=== PATIENT | female | born 1950 | race Caucasian/White ===

== ENCOUNTER → 2020-03-10 14:13 | Outpatient (CLI) | payer OTHER, SELFPAY ==
--- NOTE | ~2020-03-10 | XR_ITS ---
XR lumbar spine 2-3V 03/10/2020 14:50 Indication: Low back pain Procedure: 3 views lumbar spine Comparison: CT dated 07/16/2018 Findings: There is a superior endplate compression fracture of L1, age indeterminate. There is disc n arrowing at L3-4, L4-5 and L5-S1. There is moderate multilevel facet hypertrophy. Pedicles intact. Sa cral foramen are symmetric Impression: 1: Age-indeterminate superior endplate compression fracture of L1 which is new compared with CT dated 07/16/2018. Consider correlation with CT or MRI. 2: Moderate lumbar spondylosis. Reviewed, dictated and finalized at location B. NG FURNACE LOADER Impression: 1: Age-indeterminate superior endplate compression fracture of L1 which is new compared with CT dated 07/16/2018. Consider correlation with CT or MRI. 2: Moderate lumbar spondylosis.
== END ==
PROVIDERS: PCP Family Medicine Adolescent Medicine; Visit Provider Family Medicine Adolescent Medicine
DX: M47.896 Other spondylosis, lumbar region (principal); S32.010A Wedge compression fracture of first lumbar vertebra, initial encounter for closed fracture; X58.XXXA Exposure to other specified factors, initial encounter
CPT/HCPCS: 72100

== ENCOUNTER 2020-07-20 14:55 | Outpatient (CLI) | payer MEDICARE, SELFPAY | END 2020-07-20 14:56 | disposition home or self-care (01) | LOC: ANHCOVIDVC 14:55 | PROVIDERS: PCP Family Medicine Adolescent Medicine | DX: Z23 Encounter for immunization (principal) | CPT/HCPCS: 0001A; 91300 ==

== ENCOUNTER 2020-08-10 14:55 | Outpatient (CLI) | payer MEDICARE, SELFPAY | END 2020-08-10 14:56 | disposition home or self-care (01) | LOC: ANHCOVIDVC 14:56 | PROVIDERS: PCP Family Medicine Adolescent Medicine | DX: Z23 Encounter for immunization (principal) | CPT/HCPCS: 0002A; 91300 ==

== ENCOUNTER 2021-03-24 10:21 | Outpatient (CLI) | payer MEDICARE, SELFPAY ==
[2021-03-24 11:53] LABS: Potassium 4.8 mmol/L (3.4-5.0)
== END 2021-03-24 10:22 | disposition home or self-care (01) ==
PROVIDERS: PCP Family Medicine Adolescent Medicine; Visit Provider Physician Assistant
DX: E87.5 Hyperkalemia (principal)
CPT/HCPCS: 36415; 84132

== ENCOUNTER 2021-04-23 00:10 | Day surgery (SDC) | payer MEDICARE, SELFPAY ==
[2021-04-08 13:23] VITALS: BMI 34.5
[2021-04-23 11:48] VITALS: BP 162/83; PULSE 96; RESP 18; TEMP 36.8; O2SAT 98
[2021-04-23] MEDS: LACTATED RINGERS 1,000 ML 150 ML IV CONT (11:52)
[2021-04-23 11:59] LABS: Glucose Point of Care 206 mg/dl (65-105)
--- NOTE | 2021-04-23 12:11 | P.PNAN_ITS ---
Anes - Initial Pre Proc Eval Procedure: Operation Date: 04/23/21 13:00 Proposed Procedures p Screening Colonoscopy - Bethel Lovell MD Date/Time: 04/23/21 12:11 Surgeon: Bethel Lovell MD Pre Op Diagnosis: family hx of colon polyps Patient Data Age: 70 Gender: F Height: 1.7 m Weight: 101.6 kg Last Vital Signs Temp 98.2 F 04/23/21 11:48 Pulse 96 04/23/21 11:48 Resp 18 04/23/21 11:48 BP 162/83 H 04/23/21 11:48 Pulse Ox 98 04/23/21 11:48 Allergies Allergy/AdvReac Type Severity Reaction Status Date / Time PROPOXYPHENE HCL Allergy Intermediate HAS WEIRD Uncoded 04/23/21 11:47 DREAMS Dust Allergy Mild Unknown Uncoded 04/23/21 11:47 Molds and Smuts Allergy Mild Unknown Uncoded 04/23/21 11:47 Home Medications Medication Instructions Recorded Confirmed Type atorvastatin 20 mg PO DAILY 04/08/21 04/08/21 History bupropion HCl 300 mg PO DAILY 04/08/21 04/08/21 History duloxetine 30 mg PO DAILY 04/08/21 04/08/21 History fluconazole 150 mg PO DAILY 04/08/21 04/08/21 History glimepiride 2 mg PO DAILY 04/08/21 04/08/21 History levetiracetam 500 mg PO DAILY 04/08/21 04/08/21 History metformin 500 mg PO DAILY 04/08/21 04/23/21 History Laboratory Tests 04/23/21 11:52 POC Capillary Glucose 206 mg/dl H mg/dl (65-105) Patient hx anesthesia problems: none Family hx anesthesia problems: none Results Review: All pre-operative results and documents have been reviewed as part of the pre-operative evaluation. [facility] Social History Social History Smoking status: Never smoker Alcohol intake: never Substance use: never Substance use type: does not use Living arrangements: alone Spiritual care concerns: No Anes - Eval Final PreProcedure Day of Procedure 04/23/21 12:11 Patient weight: obese Heart: regular rate and rhythm Lungs: clear to auscultation Airway: Mallampati scale class II Neurological: alert and oriented Last oral intake: >/= 8 hours ASA classification: III Emergent: no Anesthetic plan: proceed Anesthesia type and monitoring: general GIVS and standard monitoring Results Review: All pre-operative results and documents have been reviewed as part of the pre-operative evaluation. Informed Consent: The patient's anesthetic plan and its attendant risks and benefits were discussed with the patient/family/POA. Questions were solicited and answers provided to the satisfaction of the patient/family/POA.
--- NOTE | 2021-04-23 12:33 | P.CONGI_ITS ---
Assessment and Plan Assessment and plan (1) History of colon polyps: Code(s): Z86.010 - Personal history of colonic polyps Status: Acute Assessment and Plan: Patient has had colon polyps. Most recently 2010 had adenomatous colon polyp removed from the colon plan is for surveillance colonoscopy now and intervals in the future. (2) Family history of colonic polyps: Code(s): Z83.71 - Family history of colonic polyps Status: Acute Assessment and Plan: Patient's brother has had colon polyps. For this reason patient presents today for neoplasia screening colonoscopy. GI Consult Note Consult date/time: 04/23/21 12:33 HPI: Porsha Laurent is a 70 year old female Presents for screening colonoscopy. Patient's current weight appetite and bowel movements are normal. Patient denies abdominal pain. She has had no bleeding. Patient herself was identified as having adenomatous colon polyp in 2010. Family history is signifi cant her brother has had colon polyps. Patient presents today for neoplasia screening. Review of Systems Review of Systems: All systems reviewed & are unremarkable except as noted in HPI and below PMFSH Social History Social History Smoking status: Never smoker Alcohol intake: never Substance use: never Substance use type: does not use Living arrangements: alone Spiritual care concerns: No Meds Home Medications and Allergies Home Medications Medication Instructions Recorded Confirmed Type atorvastatin 20 mg PO DAILY 04/08/21 04/08/21 History bupropion HCl 300 mg PO DAILY 04/08/21 04/08/21 History duloxetine 30 mg PO DAILY 04/08/21 04/08/21 History fluconazole 150 mg PO DAILY 04/08/21 04/08/21 History glimepiride 2 mg PO DAILY 04/08/21 04/08/21 History levetiracetam 500 mg PO DAILY 04/08/21 04/08/21 History metformin 500 mg PO DAILY 04/08/21 04/23/21 History Allergies Allergy/AdvReac Type Severity Reaction Status Date / Time PROPOXYPHENE HCL Allergy Intermediate HAS WEIRD Uncoded 04/23/21 11:47 DREAMS Dust Allergy Mild Unknown Uncoded 04/23/21 11:47 Molds and Smuts Allergy Mild Unknown Uncoded 04/23/21 11:47 Vital Signs Vital Signs - 24 hr 04/23/21 11:48 Temperature 98.2 F Pulse Rate 96 Respiratory Rate 18 Blood Pressure 162/83 H Pulse Oximetry 98 Exam Narrative: Physical exam reveals patient to be alert. Vital signs stable. HEENT exam is unremarkable. Patient is anicteric. Lungs are clear to auscultation and percussion. Heart is without murmur or extra sounds. Abdominal exam bowel sounds are present soft nontender with no organomegaly. Digital external rectal exam normal.
[2021-04-23 12:56] VITALS: BP 106/56; PULSE 76; RESP 17; O2SAT 100
[2021-04-23 13:06] VITALS: BP 117/62; PULSE 77; RESP 18; O2SAT 97
[2021-04-23 13:16] VITALS: BP 143/72; PULSE 79; RESP 21; O2SAT 100
== END 2021-04-23 13:36 | disposition home or self-care (01) ==
PROVIDERS: PCP Family Medicine Adolescent Medicine; Visit Provider Internal Medicine Gastroenterology
PROC: 0DJD8ZZ Inspection of Lower Intestinal Tract, Via Natural or Artificial Opening Endoscopic (ICD-10-PCS; CPT 45378; principal; 2021-04-23 13:00)
DX: Z12.11 Encounter for screening for malignant neoplasm of colon (principal); Z83.71 Family history of colonic polyps; Z86.010 Personal history of colon polyps; Z79.84 Long term (current) use of oral hypoglycemic drugs; E66.9 Obesity, unspecified; Z68.35 Body mass index [BMI] 35.0-35.9, adult
CPT/HCPCS: G0105; 82948; J2704; J7120

== ENCOUNTER 2024-01-24 14:46 | Outpatient (CLI) | payer MEDICARE, SELFPAY ==
--- NOTE | ~2024-01-24 | MM_ITS ---
EXAMINATION: MM screening [facility] BI w christina HISTORY: Screening TECHNIQUE: Craniocaudal and mediolateral oblique 3-D tomosynthesis images were obtained and synthetic 2-D images were generated. CAD analysis was submitted and interpreted. COMPARISON: 02/14/2011 BREAST PARENCHYMAL COMPOSITION: Not dense: There are scattered areas of fibroglandular density. FINDINGS: There are benign secretory calcifications bilaterally. There is no evidence of suspicious m ass, calcification, or architectural distortion to suggest malignancy in either breast. There has bee n no suspicious interval change. IMPRESSION: 1. No mammographic evidence of malignancy. 2. Recommend routine screening mammography in one year. BI-RADS Category 2: Benign finding(s). Reviewed, dictated and finalized at location B.
== END 2024-01-24 14:47 | disposition home or self-care (01) ==
LOC: ANHIMG 14:55
DX: Z12.31 Encounter for screening mammogram for malignant neoplasm of breast (principal)
CPT/HCPCS: 77063; 77067

== ENCOUNTER 2024-08-13 14:10 | Outpatient (CLI) | payer MEDICARE, SELFPAY ==
--- NOTE | ~2024-08-13 | CT_ITS ---
CT Scan of the Chest without Contrast: Clinical Indication: Chest swelling Technique: Contiguous sections were acquired throughout the chest without intravenous contrast. Dose reduction technique was used on this scan by utilizing automated exposure control and iterative recon struction technique. The dose-length product (DLP) was 574.56 mGy-cm. Findings: Thyroid gland is enlarged diffusely with probable bilateral nodules. There is no evidence of any significant mediastinal, hilar or axillary lymphadenopathy. Coronary jorge l ry calcifications are present. There is no evidence of pleural or pericardial effusion. The lungs are clear. No pulmonary nodules or infiltrates are noted. Images through the upper abdomen reveal no abnormalities. Chronic L1 compression fracture present. Impression: Enlarged thyroid gland with probable bilateral nodules. Consider thyroid ultrasound and/or thyroid fu nction tests for further evaluation. No pulmonary abnormality evident. Reviewed, dictated and finalized at [facility]. Impression: Enlarged thyroid gland with probable bilateral nodules. Consider thyroid ultras ound and/or thyroid function tests for further evaluation. No pulmonary abnormality evident.
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
--- OUTSIDE RECORDS SUMMARY | 2024-08-13 14:16 | XMS_ITS | Continuity of Care Document ---
Author Organization [facility] Address [address] [place] [address] Phone Care Team Providers Care Supervisor [employer] Name Role Phone Venhaus WHNP, Jeny Unavailable [...] Encounter [facility], [address], [place], [place], [address] , tel: [phone] [facility] No Information 4 Venhaus Jeny. [address], [place], [place], [address], [place]. tel:[phone] 1ST COMPRE PREV MED E/M NEW PT 65+ [facility], [address], [place], [place], [address] , tel: [phone] [facility] awwe (chief complaint) Body mass index (BMI) 35.0-35.9, adultWell woman check w/ abnormal findingS/P total hysterectomyEnco unter for other screening for cancer of breastAnogenital (venereal) wartsAccessory skin tagOther viral wartsChanges in skin textureEncounter for screening for cancer of colonEncounter for screening for other disorder 4 Venhaus Jeny. [address], [place], [place], [address], . tel:[phone] Referring Provider: Jeny Lopez, [address], [place], [address] . tel:[phone] Marcus orr, [address], [place], [place], [address] , tel: [phone] Care Guidelines 1 No Information Family History [...] Registry Payers Payer name Insurance type Covered libertarian ID Authoriza tipollo(s) [employer] Medicare Advantage CI [id number] Social History Type Description Quantity Date Captured [...] on due Referral Ordered: Referrals: Dermatology. Location: [place]. Evaluate and treat ordered Referral Referred To: Breast Center Ordered: Referrals: Mammography Screening and Diagnostic. Breast Center. Location: [facility]. Diagnostic testing ordered Nutrition Recommendation Nutrition therap y completed History Of Present Illness Encounter Date Complaint History Of Prese nt Illness awwe 73 y/o here for awwe/establish careHysterectomy 40- 50yrs agonot SALast MMG 10 yrs ago, denies h/o prior abnormal - referral sent to [facility]- managed by PCP - [facility] in [place] c/o a bump that she felt on [...] never goes away.2 sons, 1 lives in [facility]. Functional Status Date Functional Assessmen t [...]
== END 2024-08-13 14:11 | disposition home or self-care (01) ==
DX: R22.2 Localized swelling, mass and lump, trunk (principal)
CPT/HCPCS: 71250

== ENCOUNTER 2024-08-29 14:49 | Outpatient (CLI) | payer MEDICARE, MEDICAID, SELFPAY ==
--- NOTE | ~2024-08-29 | US_ITS ---
EXAMINATION: US thyroid DATE: 08/29/2024 15:48 INDICATION: Nontoxic goiter TECHNIQUE: Multiple ultrasound images of the thyroid were obtained. COMPARISON: None. FINDINGS: The right thyroid lobe measures 7.5 x 3.1 x 3.0 cm. The left thyroid lobe measures 7.8 x 3.2 x 3.0 c m. 1.2 cm solid hypoechoic wider than tall nodule with smooth margins and without echogenic foci at the superior right thyroid lobe (TI-RADS 4, moderately suspicious , FNA if >=1.5 cm, annual followup is >=1 cm). 2.5 cm wider than tall solid isoechoic nodule with smooth margins and without echogenic f oci in the inferior right thyroid lobe (TI-RADS 3, mildly suspicious , FNA if >=2.5 cm, annual follow up is >=1.5 cm). There is a 3.5 cm wider than tall solid isoechoic nodule with smooth margins and wit h internal small coarse shadowing calcification in the inferior left thyroid lobe, also TI RADS 4. 8 mm TI RADS 4 nodule with smooth peripheral rim calcified lesion which shadows the more posterior nodu le. IMPRESSION: 1. Multinodular goiter. Would recommend ultrasound-guided biopsy of the 3.5 cm TI RADS 4 left thyroid nodule and could consider additional biopsy the 2.5 cm TI RADS 3 right thyroid nodule. Reviewed, dictated and finalized at location A. IMPRESSION: 1. Multinodular goiter. Would recommend ultrasound-guided biopsy of the 3.5 cm TI RADS 4 left thyroid nodule and could consider additional biopsy the 2.5 cm T I RADS 3 right thyroid nodule.
--- OUTSIDE RECORDS SUMMARY | 2024-08-29 14:55 | XMS_ITS | Clinical Summary ---
Author Organization [facility] Address [address] [place] [address] Care Team Providers Care Accounts Manager Name Role Phone Augusto Day MD Primary Care Provider + Source Comments [facility],non-owned Affiliates and Associated Physician Practices is amultiple site organization consisting of ambulatory clinics and hospital sitesin [place], [place], [place] and [place]. This disclosure is being madepursuant to the Care Everywhere program and may not contain all information available regarding this patient. Last updated 17.[facility] Allergies No known active allergies Medications * [...] on file Legal Sex Female 6:26 PM [facility] Gender Identity Not on file Sexual Orientation Not on file Last Filed Vital Signs Vital Sign Reading Time Taken Comments Blood Pressure 158/78 05/21/2019 2:52 PM [facility] Pulse 61 05/21/2019 2:52 PM [facility] Temperature 37.2 C (99 F) 05/21/2019 2:52 PM [facility] Respiratory Rate 17 05/21/2019 2:52 PM [facility] Oxygen Saturation 99% 05/21/2019 2:52 PM [facility] Inhaled Oxygen Concentration - - Weight 102.1 kg (225 lb) 05/19/2019 6:36 PM [facility] Height 170.2 cm (5' 7 ) 05/19/2019 6:36 PM [facility] Body Mass Index 35.24 05/19/2019 6:36 PM [facility] Plan of Treatment Health Maintenance Due Date [...] Comments LIPID PROFILE STAT 05/20/2019 5:30 AM [facility] from Last 3 Months or Most Recently Relevant to Health Maintenance Results * (ABNORMAL) LIPID PROFILE (05/20/2019 5:30 AM [facility]) Cholesterol Total 144 <200 mg/dL 05/20/2019 6:07 AM [facility] HDL 37(L) >40 mg/dL 05/20/2019 6:07 AM [facility] Comment: ATP III Classification of HDL Cholesterol: <40 mg/dL: Considered a major risk factor. >60 mg/dL: Considered a negative risk factor. LDL Calculated 81 <100 mg/dL 05/20/2019 6:07 AM [facility] Comment: ATP III Classification of LDL Cholesterol: <100 mg/dL: Optimal 100 - 129 mg/dL: Near Optimal/Above Optimal 130 - 159 mg/dL: Borderline High 160 - 189 mg/dL: High >190 mg/dL: Very High Triglycerides 131 <150 mg/dL 05/20/2019 6:07 AM [facility] Comment: ATP III Classification of Triglycerides: <150 mg/dL: Normal 150 - 199 mg/dL: Borderline High 200 - 400 mg/dL: High >500 mg/dL: Very High Blood BLOOD SPECIMEN / Unknown Venipuncture / Unknown 05/20/2019 5:30 AM [facility] 05/20/2019 5:46 AM [facility] Kemi Almaraz MD LAB - CHEMISTRY ORDERABLES Fin al Result Performing Organization Address [facility]/State/ZIP Co de Phone Number [address] [phone] from Last 3 Months or Most Recently Relevant to Health Maintenance Insurance MEDICARE ANTHEM ANTHEM MEDICARE Advance Directives * Full Code (Latest Code Status on File) Date Activated Date Inactivated Comments 05/19/2019 10:24 PM 05/21/2019 3:59 PM Care Teams Accounts Manager Relationship Specialty Start Date End Date Augusto Day MD [address] [place] [id number] PCP - General Family Medicine 05/19/19
== END 2024-08-29 14:50 | disposition home or self-care (01) ==
DX: E04.9 Nontoxic goiter, unspecified (principal)
CPT/HCPCS: 76536

== ENCOUNTER 2025-01-02 16:03 | Emergency (ER) | payer MEDICARE, MEDICAID, SELFPAY ==
--- OUTSIDE RECORDS SUMMARY | 2024-03-12 08:38 | XMS_ITS | Continuity of Care Document ---
Author Organization [facility] Address [address] [place] [address] Phone Care Team Providers Care Gamma Operator Name Role Phone Venhaus WHNP, Jeny Unavailable Unavailabl e Allergies, Adverse Reactions, Alerts Substance Reaction Status Criticality No Known Allergies Active No Inform ation Procedures Procedure Date 1ST COMPRE PREV MED E/M NEW PT 65+ OFFICE/OUTPATIENT VISIT, NEW Alcohol and/or drug screening 4 Advance Directives Directive Yes / No Effective Date File Name No Information Encounters Encounter Description Practice Location Reason(s) For Visit Diagnoses Date Provider Providers Copied on Encounter [facility], [address], [place], [place], [id number] , tel:[phone] [facility] No Information 4 Venhaus Jeny. [address], [place], [place], [address], [place]. tel:[phone] 1ST COMPRE PREV MED E/M NEW PT 65+ [facility], [address], [place], [place], [id number] , tel: [phone] [facility] [place] awwe (chief complaint) Body mass index (BMI) 35.0-35.9, adultWell woman check w/ abnormal findingS/P total hysterectomyEnco unter for other screening for cancer of breastAnogenital (venereal) wartsAccessory skin tagOther viral wartsChanges in skin textureEncounter for screening for cancer of colonEncounter for screening for other disorder 4 Venhaus Jeny. [address], [place], [place], [id number], . tel:[phone] Referring Provider: Jeny Lopez, [address], [place], [address] . tel:[phone] Marcus orr, [address], [place], [place], [address] , tel: [phone] Care Guidelines 1 No Information Family History Family Member Type Diagnosis Age At Onset Problem No family history of Cancer, breast Problem No family history of Cancer, uterine Problem No family history of Cancer, colon Problem No family history of Cancer, cervical Problem No family history of Cancer, ovarian Immunizations Vaccine Date Status Comments Tdap, Adsorbed administered Source: Other Registry Payers Payer name Insurance type Covered republican ID Authoriza tipollo(s) United [employer] Medicare Advantage CI [id number] Social History Type Description Quantity Date Captured Comments Alcohol Use Details Unknown Caffeine Use Details Unknown Tobacco Use Status No Information Smoking Status No Information Sex Female Sexual Orientation Straight or heterosexual Sep Gender Identity Female Chief Complaint And Reason For Visit No Information Reason For Referral Reason For Referral No Information Plan Of Treatment Date Type Action Status Goal Glucose or Hemog lobin A1c. Due on due Goal Advanced Care Pl anning Discussed(document in Advance Directives). Due on due Goal Influenza Vaccine. Due on due Goal Zoster Vaccine. Due on due Goal FIT-DNA (Cologua rd). Due on due Goal Mammogram. Due on due Goal PAP Cervical Cyt ology plus HPV. Due on due Goal Lipid Panel. Due on 024 due Goal STI Testing (Exc lude or Hold if not at risk). Due on due Goal Pneumococcal Vac cine. Due on due Goal DEXA Bone Density. Due on due Goal Covid-19 Vaccine. Due on Mar due Goal Colonoscopy. Due on due Goal Low-Dose CT Lung Screen. Due on due Goal FIT/Hemosure. Due on 2023 due Goal Eye Exam. Due on due Goal Hepatitis C Scre ening. Due on due Goal Dental Exam. Due on due Goal Low-Dose CT Lung Screen. Due on due Goal Colonoscopy. Due on due Goal DEXA Bone Density. Due on due Goal PAP Cervical Cyt ology plus HPV. Due on due Goal Pneumococcal Vac cine. Due on due Goal Dental Exam. Due on due Goal Lipid Panel. Due on due Goal Covid-19 Vaccine. Due on Sep due Goal FIT-DNA (Cologua rd). Due on due Goal Eye Exam. Due on due Goal FIT/Hemosure. Due on 2023 due Goal STI Testing (Exc lude or Hold if not at risk). Due on due Goal Mammogram. Due on due Goal Zoster Vaccine. Due on due Goal Hepatitis C Scre ening. Due on due Goal Glucose or Hemog lobin A1c. Due on due Goal Advanced Care Pl abrahan Discussed(document in Advance Directives). Due on due Referral Ordered: Referrals: Dermatology. Location: [place]. Evaluate and treat ordered Referral Referred To: Breast Center Ordered: Referrals: Mammography Screening and Diagnostic. Breast Center. Location: [facility]. Diagnostic testing ordered Nutrition Recommendation Nutrition therap y completed History Of Present Illness Encounter Date Complaint History Of Prese nt Illness awwe 73 y/o here for awwe/establish careHysterectomy 40- 50yrs agonot SALast MMG 10 yrs ago, denies h/o prior abnormal - referral sent to [facility]- managed by PCP - [facility] in [place] c/o a bump that she felt on her perineum a few months ago while cleaning herselfFeels like bump is gone now but would like it checked out, believes this was maybe an ingrown hair or a skin tag. - warts on lower back, has had it removed a long time ago, but they have come back. States she was told they could come back, and they have.referral to derm.- 3mm oval pink rough patch on left breast, states has been there since teenage years. no changes to color, texture, or margins. Does endorse that this gets rough sometimes almost like a scab and she picks it off. But never goes away.2 sons, 1 lives in [facility]. Functional Status Date Functional Assessmen t No Information Instructions Date Instruction Additional Infor flor Return at patient's convenience for cryotherapy Related to Anogenital (venereal) warts Increase daily activity Related to Well woman check w/ abnormal finding Increase fruits, veg etables and fiber in your diet Related to Well woman check w/ abnormal finding Prescribed activity/ exercise education Related to Body mass index [BMI] 35.0-35.9, adult Assessments Type Assessment Date No Information Patient Care Teams Name Effective Dates (start - stop) Status Members No Information
--- OUTSIDE RECORDS SUMMARY | 2024-03-12 08:38 | XMS_ITS | Continuity of Care Document ---
Author Organization [facility] Address [address] [place] [address] Phone Care Team Providers Care Animal Tech Name Role Phone Venhaus WHNP, Jeny Unavailable [...] Encounter [facility], [address], [place], [place], [id number] , [phone] [facility] [place] No Information 4 Venhaus Jeny. [address], [place], [place], [address], [place]. tel:[phone] 1ST COMPRE PREV MED E/M NEW PT 65+ [facility], [address], [place], [place], [address] , tel: [phone] [facility] [place] awwe (chief complaint) Body mass index (BMI) 35.0-35.9, adultWell woman check w/ abnormal findingS/P total hysterectomyEnco unter for other screening for cancer of breastAnogenital (venereal) wartsAccessory skin tagOther viral wartsChanges in skin textureEncounter for screening for cancer of colonEncounter for screening for other disorder 4 Venhaus Jeny. [address], [place], [place], [address], . tel:[phone] Referring Provider: Jeny Lopez, [address], [place], [address] . tel:[phone] Marcus orr, [address], [place], [place], [address] , tel: [phone] Care Guidelines 1 No Information Family History [...] tipollo(s) [employer] Medicare Advantage CI [id number] Social History Type Description Quantity Date Captured Comments Alcohol Use Details Unknown Caffeine Use Details Unknown Tobacco Use Status No Information Smoking Status No Information Sex Female Sexual Orientation Straight or heterosexual Sep Gender Identity Female Chief Complaint And Reason For Visit No Information Reason For Referral Reason For Referral No Information Plan Of Treatment Date Type Action Status Goal DEXA Bone Density. Due on due Goal Pneumococcal Vac cine. Due on due Goal STI Testing (Exc lude or Hold if not at risk). Due on due Goal Lipid Panel. Due on 024 due Goal PAP Cervical Cyt ology plus HPV. Due on due Goal Mammogram. Due on due Goal FIT-DNA (Cologua rd). Due on due Goal Zoster Vaccine. Due on due Goal Influenza Vaccine. Due on due Goal Advanced Care Pl anning Discussed(document in Advance Directives). Due on due Goal Glucose or Hemog lobin A1c. Due on due Goal Covid-19 Vaccine. Due on Mar due Goal Colonoscopy. Due on due Goal Low-Dose CT Lung Screen. Due on due Goal FIT/Hemosure. Due on 2023 due Goal Eye Exam. Due on due Goal Hepatitis C Scre ening. Due on due Goal Dental Exam. Due on due Goal Eye Exam. Due [...] in Advance Directives). Due on due Goal FIT-DNA (Cologua rd). Due on due Goal Covid-19 Vaccine. Due on Sep due Goal Lipid Panel. Due on due Goal Dental Exam. Due on due Goal Pneumococcal Vac cine. Due on due Goal PAP Cervical Cyt ology plus HPV. Due on due Goal DEXA Bone Density. Due on Ju due Goal Colonoscopy. Due on 024 due Goal Low-Dose CT Lung Screen. Due on due Referral Ordered: Referrals: Dermatology. Location: [place]. Evaluate and treat ordered Referral Referred To: Breast Center Ordered: Referrals: Mammography Screening and Diagnostic. Breast Center. Location: [facility]. Diagnostic testing ordered Nutrition Recommendation Nutrition therap y completed History Of Present Illness Encounter Date Complaint History Of Prese nt Illness awwe 73 y/o here for awwe/establish careHysterectomy 40- 50yrs agonot SALast MMG 10 yrs ago, denies h/o prior abnormal - referral sent to [facility]- managed by PCP - [facility] in [place] c/o a bump [...] never goes away.2 sons, 1 lives in [facility]. Functional Status Date Functional Assessmen t No [...]
--- NOTE | ~2025-01-02 | US_ITS ---
EXAMINATION:US venous doppler LE BI INDICATION:DVT left leg TECHNIQUE: Multiple grayscale, color flow and Doppler images of the right and left lower extremity deep venous systems were obtained and reviewed. COMPARISON:No prior studies for comparison. FINDINGS: The right common femoral, superficial femoral and popliteal veins demonstrate normal respiratory variation, augmentation and compressibility. Color flow is also seen within the posterior tibial, peroneal, greater saphenous and profunda veins. There is extensive deep venous thrombosis of the left femoral, popliteal, posterior tibial, peroneal and gastrocnemius veins as well as the greater saphenous vein. IMPRESSION: 1: Extensive deep venous thrombosis of the left lower extremity veins. Reviewed, dictated and finalized at location O.
[2025-01-02 16:09] VITALS: BP 97/63; PULSE 109; RESP 20; TEMP 36.9; O2SAT 99
[2025-01-02 16:16] VITALS: BP 117/63; PULSE 109; RESP 18; TEMP 36.9; O2SAT 99
[2025-01-02 17:00] LABS: Hematocrit 43.5 % (37.0-47.0); Hemoglobin 14.4 g/dL (12.0-15.0); Immature Granulocyte Percent A 0.6 % (0-0.5); Lymphocytes Absolute Auto 1.71 K/mm3 (0.9-3.2); Mean Corpuscular HGB Conc 33.1 g/dl (32-36); Mean Corpuscular Hemoglobin 28.2 pg (26-34); Mean Corpuscular Volume 85.3 fl (80-100); Nucleated Red Blood Cells Absolute Auto 0.000 K/mm3 (0.0-0.012); Nucleated Red Blood Cells Perc 0.0 % (0.0-0.2); Platelet Count Result 206 k/mm3 (150-375); Red Blood Count 5.10 M/mm3 (4.2-5.4); White Blood Count 12.8 K/mm3 (4.5-10.0)
[2025-01-02 17:10] LABS: Alanine Aminotransferase 18 U/L (6-35); Albumin Level 4.1 g/dL (3.5-5.1); Alkaline Phosphatase 68 U/L (38-126); Anion Gap 11 mmol/L (4-12); Aspartate Amino Transferase 28 U/L (14-36); Bilirubin,Total 1.1 mg/dL (0.2-1.3); Blood Urea Nitrogen 22 mg/dL (7-17); Calcium 9.3 mg/dL (8.4-10.2); Carbon Dioxide 21 mmol/L (22-30); Chloride 98 mmol/L (98-107); Estimated CRCL calculation 44 ml/min; Estimated Glomerular Filt Rate 43; Glucose 316 mg/dL (65-110); Potassium 4.8 mmol/L (3.4-5.0); Sodium 130 mmol/L (137-145); Total Protein 7.6 g/dL (6.3-8.2)
[2025-01-02 17:23] LABS: INR 1.0; Prothrombin Time 13.8 Seconds (11.1-14.7)
[2025-01-02 17:24] LABS: Partial Thromboplastin Time 29.8 Seconds (22.3-36.8)
--- OUTSIDE RECORDS SUMMARY | 2025-01-02 17:41 | XMS_ITS | Encounter Summary ---
Author Organization [facility] Address [address] [place] [address] Care Team Providers Care Cell Operation Supervisor Name Role Phone Elena Ervin MONTANA-PROJECT COORDINATOR Primary Care Provider [phone]- [phone] Encounter Details Date Type Department Care Team (Late st Contact Info) Description 01/02/2025 Telephone [facility] - Endocrinology [address] [place] [address], [facility] [place] [id number] Adama Herrera MD [address] [place] [address] [place] [address] Social History Tobacco Use Types Packs/Day Years Used Date Smoking Tobacco: Never Smokeless Tobacco: Never Alcohol Use Standard Drinks/Week Comments Never 0 (1 standard drink = 0.6 oz pur e alcohol) PHQ-2 Answer Date Recorded Patient Health Questionnaire-2 Score 0 12/06/2024 Comments Unknown Sex and Gender Information Value Date Recorded Sex Assigned at Not on file Legal Sex Female 6:26 PM GEOMETRY TEACHER Gender Identity Not on file Sexual Orientation Not on file documented as of this encounter Miscellaneous Notes * Telephone Encounter - Neyda Fischer - 01/02/2025 12:51 PM CDT Current Provider: Ms. Porsha Laurent Reason for Call: Ms. Porsha Laurent has FNA appt w Dr. Herrera tomorrow. She is having issues with leg swelling, she did speak w her PCP, PCP did advise her to go to ER, I ALSO ENCOURAGED her to go to ER, Please have Nurse give her a call to see if there's anything else she should do. PLEASE HAVE NURSE/ OFFICE CALL ROBE. She would like a call. She is Patient Call Back Number: [phone] documented in this encounter Plan of Treatment Upcoming Encounters Date Type Department Care Team (Late st Contact Info) Description 01/03/2025 3:00 PM CDT Procedure visit [facility] - Endocrinology [address] [place] [address], [place] [address] Adama Herrera MD [address] [place] [address] [place] [address] documented as of this encounter Visit Diagnoses Not on filedocumented in this encounter Care Teams Cell Operation Supervisor Relationship Specialty Start Date End Date Elena Ervin APRN-JENY [address] [place] [address] PCP - General Nurse Practitioner 01/02/25 documented as of this encounter
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
--- OUTSIDE RECORDS SUMMARY | 2025-01-02 17:42 | XMS_ITS | Encounter Summary ---
Author Organization [facility] Address [address] [place] [address] Care Team Providers Care Director For Beauty School Name Role Phone Elena Ervin HEAD OF VISUAL MERCHANDISING-GROUNDS MANAGER Primary Care Provider +1- [phone] Reason for Visit * Reason Onset Date Comments Swelling Leg 01/02/2025 Encounter Details Date Type Department Care Team (Late st Contact Info) Description 01/02/2025 Telephone [facility] [facility] [place] [address] Pinky Myers RN Swelling Leg Social History Tobacco Use Types Packs/Day Years Used Date Smoking Tobacco: Never Smokeless Tobacco: Never Alcohol Use Standard Drinks/Week Comments Never 0 (1 standard drink = 0.6 oz pur e alcohol) PHQ-2 Answer Date Recorded Patient Health Questionnaire-2 Score 0 12/06/2024 Comments Unknown Sex and Gender Information Value Date Recorded Sex Assigned at Not on file Legal Sex Female 6:26 PM CERTIFIED CODING SPECIALIST Gender Identity Not on file Sexual Orientation Not on file documented as of this encounter Miscellaneous Notes * Telephone Encounter - Pinky Myers RN - 01/02/2025 1:18 PM CDT Received message: Current Provider: Joey Porsha Laurent Reason for Call: Ms. Porsha [...] call. She is Patient Call Back Number: [phone] 1319: RN called and left vm message for patient to return call. documented in this encounter Plan of Treatment Upcoming Encounters Date Type Department Care Team (Late st Contact Info) Description 01/03/2025 3:00 PM CDT Procedure visit [facility] - Endocrinology [address] [place] [address], [place] [address] Adama Herrera MD [address] [place] [address] [place] [address] documented as of this encounter Visit Diagnoses Not on filedocumented in this encounter Care Teams Director For Beauty [employer] Relationship Specialty Start Date End Date Elena Ervin APRN-JENY [address] [place] [address] PCP - General Nurse Practitioner 01/02/25 documented as of this encounter
--- OUTSIDE RECORDS SUMMARY | 2025-01-02 17:45 | XMS_ITS | Data Portability ---
Author Organization [employer], Main Office Address [address] [place] [address] Assessment Encounter Date Assessment Date Assessment LastModified by Organization Details LastModified Time 12/11/2024 12/11/2024 Time spent with patient included: preparing to see patient by reviewing tests, obtaining and reviewing history, medical examination and evaluation, counseling and educating the patient, ordering medications and tests, documenting clinical information in EHR, independently interpreting results and communicating results to the patient for a total of 41 minutes. [email or web address] Not available 12/11/2024 14:37:23 Plan of Treatment Reminders Order Date Submit Date Provider Last Modified By Organization Details Last Modified Time Details Appointments None recorded. Lab None recorded. Referral None recorded. Procedures None recorded. Surgeries None recorded. Imaging polysomno gram, diagnosti c, 6 yrs or older - Please call patient to schedule. 2024 [facility] ([facility]), [address] [place], [address], 14:43:38 Medication Orders None recorded. Patient TargetsNo targets recorded. Patient InstructionsNo instructions recorded. Reason for Referral None Reported. Problems Name Problem SNOMED Code Status Onset Date Resolution Date Notes Provider Name and Address Organization Details Recorded Time Sleep apnea 03860847 Active 025 Stephanie Wilson NP [address] [facility], [facility] [address], [place], [address] , [employer] 12/11/2024 14:21:36 Problem Notes None recorded. Medical Equipment None Reported. Allergies No known drug allergies Medications Name Sig Start Date Stop Date Status Note LastModified by Organization Details LastModified Time atorvastati n 20 mg tablet TAKE ONE TABLET BY MOUTH IN THE MORNING active Not Available Not Available No t Available levetiracet am 500 mg tablet TAKE ONE TABLET BY MOUTH TWICE DAILY active Not Available Not Available No t Available Alcohol Pads TEST 4 TIMES A DAY active Not Available Not Available No t Available glimepiride 2 mg tablet TAKE ONE TABLET BY MOUTH TWICE DAILY active Not Available Not Available No t Available losartan 100 mg-hydrochl orothiazide 25 mg tablet TAKE ONE TABLET BY MOUTH ONCE DAILY FOR 90 DAYS active Not Available Not Available No t Available OneTouch Ultra Test strips TEST 4 TIMES A DAY 12/11 completed Not Available Not Available Not Available hydroxyzine HCl 25 mg tablet TAKE ONE TABLET BY MOUTH AT BEDTIME NEEDED FOR ANXIETY active Not Available Not Available No t Available Linzess 145 mcg capsule TAKE ONE CAPSULE BY MOUTH DAILY active Not Available Not Available No t Available Linzess 290 mcg capsule TAKE 1 CAPSULE BY MOUTH ONCE DAILY active Not Available Not Available No t Available Safety Lancets 28 gauge TEST 4 TIMES A DAY 12/11 completed Not Available Not Available Not Available OneFiiilinguch Ultra2 Meter USE DIRECTED 12/11 completed Not Available Not Available Not Available Vitals Date Recorded Body weight Body mass index (BMI) Body height Heart rate Oxygen saturation Oxygen saturation in Arterial blood by Pulse oximetry Body temperature Systolic And Diastolic Provider Name and Address Organization Details Last Updated DateTime 5 99407.7 7 g 33.5 kg/m2 170.18 cm 73 /min 98 % 98 % 97.8 [degF] 110/80 mm[Hg] Jessenia Sherman MA [employer] 14:14:26 Social History Question Answer Notes LastModified by Organizat ion Details LastModified Time Tobacco Smoking Status Never Smoker Jessenia Sherman MA null, [employer] 12/11/2024 14:11:15 What Is Your Level Of Caffeine Consumption? None Information not available 12/11/2024 In The 14 Days Before Symptom Onset, Have You Had Close Contact With A Laboratory-confirm ed COVID-19 While That Case Was Ill? No Information n ot available 12/11/2024 In The 14 Days Before Symptom Onset, Have You Had Close Contact With A Person Who Is Under Investigation For COVID-19 While That Person Was Ill? No Information not available 12/11/2024 Do You Have An Electrostatic Air Filter? No Information not available 12/11/2024 Do You Have A Humidifier? No Information not available 12/11/2024 Do You Have Moisture Problems In Your Home? No Information not available 12/11/2024 What Was The Date Of Your Most Recent Tobacco Screening? 12/11/2024 Information not available 12/11/2024 Do You Have Any Pets? No Information not available 12/11/2024 Do You Have Smoke And Carbon Monoxide Detectors In Your Home? Yes Information not available 12/11/2024 Are You Passively Exposed To Smoke? No Information no t available 12/11/2024 Do You Use Sunscreen Routinely? No Information not available 12/11/2024 Have You Recently Traveled Abroad? No Information not available 12/11/2024 Sex: Unknown Functional Status Question Answer Note LastModified by [employer] ion Details LastModified Time Do you use any illicit or recreational drugs? No Information not available 12/11/2024 Do you or have you ever used any other forms of tobacco or nicotine? No Information not available 12/11/2024 What is your level of alcohol consumption? Occasional maybe once a year Information not available 12/11/2024 Are you currently employed? No Information not available 12/11/2024 Have you been exposed to chemicals or toxins? Yes Information not available 12/11/2024 Mental Status Question Answer Note LastModified by Organization D etails LastModified Time Do you feel stressed (tense, restless, nervous, or anxious, or unable to sleep at night)? [id number] Information not available 12/11/2024 Family History Nothing Reported. Medical History No medical history recorded. Gynecological HistoryNo gynecological history recorded. Obstetrics History GPAL:G 0 P 0 0 0 0 Past Encounters Encounter ID Performer Location Encounter Start Date Encounter Closed Date Diagnosis/Indication Diagnosis SNOMED-CT Code Diagnosis ICD10 Code Diagnosis IMO Codes Diagnosis Note [id number] Milad Miller MD [facility] [address] [address] 12/11/2024 13:57:29 12/12/2024 15:42:26 Sleep apnea 60472610 G47.30 G47.33 G47.10 [id number] Sleep study order todayESS-1 0Discussed sleep hygeineAdv ised good sleep habits and patterns:- Set a goal for at least 7 to 8 hours of sleep time per day-Use the bed mainly for sleep and to go to bed only when tired. If unable to fall asleep after 30 minutes, patient should get out of bed but should not engage in any activity that requires sustained mental alertness. -Maintain a bedtime and wake-up time even on weekends or day off of work.-Avoi d excessive naps during the daytime. If a nap is necessary, limit to no more than 30 minutes.-M inimize enviroment al noise, bright lights, and extremitie s in bedroom temperatur es.-Avoid alcohol, caffeinate d beverages, and nicotine products for at least 6 hours prior to bedtime.-A void strenuous exercise and large meals for at least 4 hours prior to bedtime.-D iscussed reportable signs and symptoms of concernf/u after sleep study Body mass index 30+ - obesity 699596537 Z68.33 796951 Encourage healthy diet and exercise to improve weightdisc ussed weight effect on sleep and sleep apnea History of cerebrovascular accident 272448527 Z86.73 544025 left facial droop Health Concerns Section Related Observation LastModified by Organization Detai ls LastModified Time None Recorded Concern Status LastModified by Organization Details LastModified Time None Recorded Advance Directives Directive None Recorded Payers Insurance Date Sequence Insurance Name Policy Number Policy Harrison Covered Member ID Harrison Member ID Guarantor Name 12/11/2024 1 [facility] (MEDICARE REPLACEMENT/A DVANTAGE - PPO) [id number] Porsha Laurent [id number] Porsha Laurent Notes Date Note Type Note Provider Name and Address Organization Details Recorded Time 5 text/html Obstructive Sleep ApneaReported by PatientHPIFor associated symptoms, patient reportsmorning dry mouth,postnasal drip,daytime sleepiness,suddenly falling asleep during the day,excess napping,loud snoring, andamnesiabut reportsno morning headache,no dysphagia,no awakening short of breath,no night sweats,no impaired work performance,no nasal congestion,no gasping for air,no witnessed apnea,no hyponasal speech,no mouth breathing,no hyperactivity,normal concentration, andno irritability. For severity, patient reportsworsening. For timing, patient reportsdaily. For duration, patient reportsfrequent. For context, patient reportsinconsistent sleep routine,history of stroke, andhypertension. For aggravating factors, patient reportsnone. For alleviating factors, patient reportspositioning.notes days and nights are confused-goes to bed super late and gets up latePatient scattered thoughts but easily redirected Stephanie Wilson NP [address] [facility], [facility] [address], [place], [address], [facility] 12/12/2024 10:38:36 OBGyn Episode No OBEpisode recorded.
--- NOTE | 2025-01-02 18:52 | ED.GENADULT ---
HPI - General Adult General Chief complaint: Extremity Problem,Nontraumatic <Ranjan Garcia MD - Last Filed: 01/02/25 20:56> Stated complaint: L LEG SWELLING X1D <Ranjan Garcia MD - Last Filed: 01/02/25 20:56> Time Seen by Provider: 01/02/25 16:26 <Ranjan Garcia MD - Last Filed: 01/02/25 20:56> History of Present Illness HPI narrative: This is a 74-year-old female presenting with left leg swelling. Patient says she woke from sleep 2 days ago he noticed that her left leg was significantly more swollen than her right. No significant pain. She says it is slightly hard walking feels weaker than usual. No chest pain or shortness of breath. No history of DVT or PE. No known cancer that she is aware of. She is largely sedentary but does walk with a walker. <Ranjan Garcia MD - Last Filed: 01/02/25 20:56> Related Data Home medications: Home Medications ?Medication ?Instructions ?Recorded ?Confirmed ?Last Taken ?Type bupropion HCl 300 mg 24 hr tablet, 300 mg PO DAILY 04/08/21 02/19/24 Unknown History extended release duloxetine 30 mg capsule,delayed 30 mg PO DAILY 04/08/21 02/19/24 Unknown History release fluconazole 150 mg tablet 150 mg PO DAILY 04/08/21 02/19/24 Unknown History levetiracetam 500 mg tablet 500 mg PO DAILY 04/08/21 02/19/24 Unknown History <Ranjan Garcia MD - Last Filed: 01/02/25 20:56> Allergies/adverse reactions: Allergies Allergy/AdvReac Type Severity Reaction Status Date / Time acetaminophen (From AdvReac Insomnia Verified 01/02/25 16:06 Darvocet-N 100) house dust AdvReac Sneezing Verified 01/02/25 16:06 mold AdvReac Sneezing Verified 01/02/25 16:06 propoxyphene (From AdvReac Insomnia Verified 01/02/25 16:06 Darvocet-N 100) <Ranjan Garcia MD - Last Filed: 01/02/25 20:56> [facility] Social History Social History: Social History Smoking status: Never smoker Alcohol intake: never Substance use: never Substance use type: does not use Living arrangements: alone Spiritual care concerns: No <Ranjan Garcia MD - Last Filed: 01/02/25 20:56> Exam Narrative: APPEARANCE: No apparent distress. Head: atraumatic. EYES: EOMI, NOSE: Atraumatic NECK: Trachea midline RESPIRATORY: No increased rate of breathing 99% on room air CARDIOVASCULAR: Tachycardic, focal exam of lower extremities showed significant swelling of the patient's left upper and lower leg. Plus two Pitting edema. Pulses obtained via Doppler on the ultrasound. No overlying skin changes. ABDOMINAL: Non-distended MUSCULOSKELETAl: No obvious deformities NEURO: Alert. Moving 4/4 extremities SKIN:: Warm, dry. Normal color PSYCHIATRIC: Normal affect <Ranjan Garcia MD - Last Filed: 01/02/25 20:56> Course Course Emergency Course: Patient care signed out by previous provider pending transfer to [facility] for thrombectomy. Patient remains hemodynamically stable. No acute overnight issues. Still awaiting hospital bed. Morning Lovenox injection ordered. Signed out to next provider pending transfer completion. <Ryan Espitia MD - Last Filed: 01/03/25 06:18> Reevaluation(s) Reevaluation #1: Patient was stable at time of transfer to [place] <Leopoldo Weller MD - Last Filed: 01/03/25 17:41> Vital Signs Vital signs: Vital Signs Temperature 98.4 F 01/02/25 16:09 Pulse Rate 109 H 01/02/25 16:09 Respiratory Rate 20 01/02/25 16:09 Blood Pressure 97/63 L 01/02/25 16:09 Pulse Oximetry 99 01/02/25 16:09 Oxygen Delivery Room Air 01/02/25 16:09 Temperature 98.4 F 01/02/25 16:16 Pulse Rate 69 01/03/25 16:06 Respiratory Rate 20 01/03/25 16:06 Blood Pressure 119/58 L 01/03/25 16:06 Pulse Oximetry 97 01/03/25 16:06 Oxygen Delivery Room Air 01/02/25 16:16 <Ranjan Garcia MD - Last Filed: 01/02/25 20:56> Vital Signs Temperature 98.4 F 01/02/25 16:09 Pulse Rate 109 H 01/02/25 16:09 Respiratory Rate 20 01/02/25 16:09 Blood Pressure 97/63 L 01/02/25 16:09 Pulse Oximetry 99 01/02/25 16:09 Oxygen Delivery Room Air 01/02/25 16:09 Temperature 98.4 F 01/02/25 16:16 Pulse Rate 69 01/03/25 16:06 Respiratory Rate 20 01/03/25 16:06 Blood Pressure 119/58 L 01/03/25 16:06 Pulse Oximetry 97 01/03/25 16:06 Oxygen Delivery Room Air 01/02/25 16:16 <Ryan Espitia MD - Last Filed: 01/03/25 06:18> Vital Signs Temperature 98.4 F 01/02/25 16:09 Pulse Rate 109 H 01/02/25 16:09 Respiratory Rate 20 01/02/25 16:09 Blood Pressure 97/63 L 01/02/25 16:09 Pulse Oximetry 99 01/02/25 16:09 Oxygen Delivery Room Air 01/02/25 16:09 Temperature 98.4 F 01/02/25 16:16 Pulse Rate 69 01/03/25 16:06 Respiratory Rate 20 01/03/25 16:06 Blood Pressure 119/58 L 01/03/25 16:06 Pulse Oximetry 97 01/03/25 16:06 Oxygen Delivery Room Air 01/02/25 16:16 <Leopoldo Weller MD - Last Filed: 01/03/25 17:41> Medical Decision Making MDM Narrative Medical decision making narrative: -Course: 74-year-old female presenting with a swollen left leg for 2 days. Point of care ultrasound showed clots at the left femoral vein and the popliteal vein. Official ultrasound ordered. Patient given Lovenox. Official ultrasound showed extensive DVT from the femoral vein through the popliteal veins into the calf. Case was discussed with Dr. Gillette (Vascular Surgeon) at [facility] who believes she would benefit from a thrombectomy. We attempted to transfer her directly however there was a very long waiting list. We then attempted transfer to the ED but they are on black status. The patient was then accepted by the medicine team under Dr. Owens as an urgent high priority transfer. Signed out to the oncoming physician pending transfer. -DDX includes but is not limited to: Venous occlusion, arterial occlusion <Ranjan Garcia MD - Last Filed: 01/02/25 20:56> Vital Signs Vital Signs: Vital Signs Temperature 98.4 F 01/02/25 16:09 Pulse Rate 109 H 01/02/25 16:09 Respiratory Rate 20 01/02/25 16:09 Blood Pressure 97/63 L 01/02/25 16:09 Pulse Oximetry 99 01/02/25 16:09 Oxygen Delivery Room Air 01/02/25 16:09 Temperature 98.4 F 01/02/25 16:16 Pulse Rate 69 01/03/25 16:06 Respiratory Rate 20 01/03/25 16:06 Blood Pressure 119/58 L 01/03/25 16:06 Pulse Oximetry 97 01/03/25 16:06 Oxygen Delivery Room Air 01/02/25 16:16 <Ranjan Gracia MD - Last Filed: 01/02/25 20:56> Vital Signs Temperature 98.4 F 01/02/25 16:09 Pulse Rate 109 H 01/02/25 16:09 Respiratory Rate 20 01/02/25 16:09 Blood Pressure 97/63 L 01/02/25 16:09 Pulse Oximetry 99 01/02/25 16:09 Oxygen Delivery Room Air 01/02/25 16:09 Temperature 98.4 F 01/02/25 16:16 Pulse Rate 69 01/03/25 16:06 Respiratory Rate 20 01/03/25 16:06 Blood Pressure 119/58 L 01/03/25 16:06 Pulse Oximetry 97 01/03/25 16:06 Oxygen Delivery Room Air 01/02/25 16:16 <Ryan Espitia MD - Last Filed: 01/03/25 06:18> Vital Signs Temperature 98.4 F 01/02/25 16:09 Pulse Rate 109 H 01/02/25 16:09 Respiratory Rate 20 01/02/25 16:09 Blood Pressure 97/63 L 01/02/25 16:09 Pulse Oximetry 99 01/02/25 16:09 Oxygen Delivery Room Air 01/02/25 16:09 Temperature 98.4 F 01/02/25 16:16 Pulse Rate 69 01/03/25 16:06 Respiratory Rate 20 01/03/25 16:06 Blood Pressure 119/58 L 01/03/25 16:06 Pulse Oximetry 97 01/03/25 16:06 Oxygen Delivery Room Air 01/02/25 16:16 <Leopoldo Weller MD - Last Filed: 01/03/25 17:41> Lab Data Result diagrams: 01/02/25 16:52 01/02/25 16:52 <Ranjan Garcia MD - Last Filed: 01/02/25 20:56> Labs: Lab Results 01/02/25 Range/Units 16:52 WBC 12.8 H (4.5-10.0) K/mm3 RBC 5.10 (4.2-5.4) M/mm3 Hgb 14.4 (12.0-15.0) g/dL Hct 43.5 (37.0-47.0) % MCV 85.3 (80-100) fl MCH 28.2 (26-34) pg MCHC 33.1 (32-36) g/dl RDW 13.0 (11.5-14.5) % Plt Count 206 (150-375) k/mm3 MPV 11.1 H (7.4-10.4) fl Immature Gran % (Auto) 0.6 H (0-0.5) % Neut % (Auto) 76.4 H (45.5-73.1) % Lymph % (Auto) 13.3 L (18.3-44.2) % [place] % (Auto) 7.8 (2.6-8.5) % Eos % (Auto) 1.7 (0-4.4) % Baso % (Auto) 0.2 (0.2-1.2) % Lymph # (Auto) 1.71 (0.9-3.2) K/mm3 [place] # (Auto) 1.0 H (0.1-0.6) K/mm3 Eos # (Auto) 0.2 (0-0.3) K/mm3 Baso # (Auto) 0.0 (0.0-0.1) K/mm3 Abs Immat Gran (auto) 0.08 H (0.00-0.031) K/mm3 Absolute Neuts (auto) 9.8 H (1.3-6.7) K/mm3 Absolute Nucleated RBC 0.000 (0.0-0.012) K/mm3 Nucleated RBC % 0.0 (0.0-0.2) % PT 13.8 (11.1-14.7) Seconds INR 1.0 APTT 29.8 (22.3-36.8) Seconds Sodium 130 L (137-145) mmol/L Potassium 4.8 (3.4-5.0) mmol/L Chloride 98 (98-107) mmol/L Carbon Dioxide 21 L (22-30) mmol/L Anion Gap 11 (4-12) mmol/L BUN 22 H (7-17) mg/dL Creatinine 1.21 H (0.7-1.0) mg/dL Estim Creat Clear Calc 44 ml/min Estimated GFR 43 L (59 - ) Glucose 316 H (65-110) mg/dL Calcium 9.3 (8.4-10.2) mg/dL Total Bilirubin 1.1 (0.2-1.3) mg/dL AST 28 (14-36) U/L ALT 18 (6-35) U/L Alkaline Phosphatase 68 (38-126) U/L Total Protein 7.6 (6.3-8.2) g/dL Albumin 4.1 (3.5-5.1) g/dL <Ranjan Garcia MD - Last Filed: 01/02/25 20:56> Lab Results 01/02/25 Range/Units 16:52 WBC 12.8 H (4.5-10.0) K/mm3 RBC 5.10 (4.2-5.4) M/mm3 Hgb 14.4 (12.0-15.0) g/dL Hct 43.5 (37.0-47.0) % MCV 85.3 (80-100) fl MCH 28.2 (26-34) pg MCHC 33.1 (32-36) g/dl RDW 13.0 (11.5-14.5) % Plt Count 206 (150-375) k/mm3 MPV 11.1 H (7.4-10.4) fl Immature Gran % (Auto) 0.6 H (0-0.5) % Neut % (Auto) 76.4 H (45.5-73.1) % Lymph % (Auto) 13.3 L (18.3-44.2) % [place] % (Auto) 7.8 (2.6-8.5) % Eos % (Auto) 1.7 (0-4.4) % Baso % (Auto) 0.2 (0.2-1.2) % Lymph # (Auto) 1.71 (0.9-3.2) K/mm3 [place] # (Auto) 1.0 H (0.1-0.6) K/mm3 Eos # (Auto) 0.2 (0-0.3) K/mm3 Baso # (Auto) 0.0 (0.0-0.1) K/mm3 Abs Immat Gran (auto) 0.08 H (0.00-0.031) K/mm3 Absolute Neuts (auto) 9.8 H (1.3-6.7) K/mm3 Absolute Nucleated RBC 0.000 (0.0-0.012) K/mm3 Nucleated RBC % 0.0 (0.0-0.2) % PT 13.8 (11.1-14.7) Seconds INR 1.0 APTT 29.8 (22.3-36.8) Seconds Sodium 130 L (137-145) mmol/L Potassium 4.8 (3.4-5.0) mmol/L Chloride 98 (98-107) mmol/L Carbon Dioxide 21 L (22-30) mmol/L Anion Gap 11 (4-12) mmol/L BUN 22 H (7-17) mg/dL Creatinine 1.21 H (0.7-1.0) mg/dL Estim Creat Clear Calc 44 ml/min Estimated GFR 43 L (59 - ) Glucose 316 H (65-110) mg/dL Calcium 9.3 (8.4-10.2) mg/dL Total Bilirubin 1.1 (0.2-1.3) mg/dL AST 28 (14-36) U/L ALT 18 (6-35) U/L Alkaline Phosphatase 68 (38-126) U/L Total Protein 7.6 (6.3-8.2) g/dL Albumin 4.1 (3.5-5.1) g/dL <Ryan Espitia MD - Last Filed: 01/03/25 06:18> Lab Results 01/02/25 Range/Units 16:52 WBC 12.8 H (4.5-10.0) K/mm3 RBC 5.10 (4.2-5.4) M/mm3 Hgb 14.4 (12.0-15.0) g/dL Hct 43.5 (37.0-47.0) % MCV 85.3 (80-100) fl MCH 28.2 (26-34) pg MCHC 33.1 (32-36) g/dl RDW 13.0 (11.5-14.5) % Plt Count 206 (150-375) k/mm3 MPV 11.1 H (7.4-10.4) fl Immature Gran % (Auto) 0.6 H (0-0.5) % Neut % (Auto) 76.4 H (45.5-73.1) % Lymph % (Auto) 13.3 L (18.3-44.2) % [place] % (Auto) 7.8 (2.6-8.5) % Eos % (Auto) 1.7 (0-4.4) % Baso % (Auto) 0.2 (0.2-1.2) % Lymph # (Auto) 1.71 (0.9-3.2) K/mm3 [place] # (Auto) 1.0 H (0.1-0.6) K/mm3 Eos # (Auto) 0.2 (0-0.3) K/mm3 Baso # (Auto) 0.0 (0.0-0.1) K/mm3 Abs Immat Gran (auto) 0.08 H (0.00-0.031) K/mm3 Absolute Neuts (auto) 9.8 H (1.3-6.7) K/mm3 Absolute Nucleated RBC 0.000 (0.0-0.012) K/mm3 Nucleated RBC % 0.0 (0.0-0.2) % PT 13.8 (11.1-14.7) Seconds INR 1.0 APTT 29.8 (22.3-36.8) Seconds Sodium 130 L (137-145) mmol/L Potassium 4.8 (3.4-5.0) mmol/L Chloride 98 (98-107) mmol/L Carbon Dioxide 21 L (22-30) mmol/L Anion Gap 11 (4-12) mmol/L BUN 22 H (7-17) mg/dL Creatinine 1.21 H (0.7-1.0) mg/dL Estim Creat Clear Calc 44 ml/min Estimated GFR 43 L (59 - ) Glucose 316 H (65-110) mg/dL Calcium 9.3 (8.4-10.2) mg/dL Total Bilirubin 1.1 (0.2-1.3) mg/dL AST 28 (14-36) U/L ALT 18 (6-35) U/L Alkaline Phosphatase 68 (38-126) U/L Total Protein 7.6 (6.3-8.2) g/dL Albumin 4.1 (3.5-5.1) g/dL <Leopoldo Weller MD - Last Filed: 01/03/25 17:41> Discharge Plan Discharge Clinical Impression: DVT (deep venous thrombosis) <Ranjan Garcia MD - Last Filed: 01/02/25 20:56> Patient Disposition: [facility] <Ranjan Garcia MD - Last Filed: 01/02/25 20:56> Condition: Stable <Ranjan Garcia MD - Last Filed: 01/02/25 20:56> Instructions: Deep Vein Thrombosis (DC) <Ranjan Garcia MD - Last Filed: 01/02/25 20:56> Patient Language: Ecuadorean <Ranjan Garcia MD - Last Filed: 01/02/25 20:56> Prescriptions: No Action fluconazole 150 mg tablet 150 mg PO DAILY levetiracetam 500 mg tablet 500 mg PO DAILY bupropion HCl 300 mg tablet extended release 24 hr 300 mg PO DAILY duloxetine 30 mg capsule,delayed release(DR/EC) 30 mg PO DAILY pioglitazone 30 mg tablet 30 mg PO DAILY Qty: 30 5RF atorvastatin 20 mg tablet 20 mg PO DAILY Qty: 90 1RF metformin 500 mg tablet extended release 24 hr 1,000 mg PO DAILY Qty: 180 0RF cetirizine 10 mg tablet 10 mg PO DAILY Qty: 90 2RF glimepiride 2 mg tablet 4 mg PO DAILY Qty: 180 0RF Linzess 290 mcg capsule See Rx Instructions .ROUTE .COMPLEX Qty: 30 3RF Dose Instruction: Take 1 capsule by mouth once daily Rx Instructions: Take 1 capsule by mouth once daily <Ranjan Garcia MD - Last Filed: 01/02/25 20:56> Follow-up/Referrals: Arcadio,Elena Hunter, [employer] [Primary Care Provider, Unknown] <Ranjan Garcia MD - Last Filed: 01/02/25 20:56>
[2025-01-02] MEDS: ENOXAPARIN 100 MG/ML SYRINGE 97 MG SUB-Q (19:16)
[2025-01-02 19:17] VITALS: BP 116/92; PULSE 78; RESP 15; O2SAT 95
[2025-01-02 21:32] VITALS: BP 102/51; PULSE 72; RESP 20; O2SAT 99
--- NOTE | 2025-01-02 22:21 | PC.NURSE ---
RN placed hospital bed in room for patient comfort.
[2025-01-03] VITALS (9 sets, daily range): BP systolic 97–119; BP diastolic 49–76; PULSE 69–90; RESP 16–20; O2SAT 95–98
[2025-01-03] MEDS: LACTATED RINGERS 1,000 ML 100 ML IV CONT (08:33)
[2025-01-03] MEDS: ENOXAPARIN 100 MG/ML SYRINGE 97 MG SUB-Q (08:33)
--- NOTE | 2025-01-03 09:51 | PC.NURSE ---
Johnnie called for update. Waiting on bed.
== END 2025-01-03 17:52 | disposition short-term general hospital (02) ==
PROVIDERS: Emergency Provider Emergency Medicine; PCP Registered Nurse
DX: I82.412 Acute embolism and thrombosis of left femoral vein (principal); I82.432 Acute embolism and thrombosis of left popliteal vein; I82.442 Acute embolism and thrombosis of left tibial vein; I82.452 Acute embolism and thrombosis of left peroneal vein; I82.462 Acute embolism and thrombosis of left calf muscular vein
CPT/HCPCS: 36415; 80053; 85025; 85610; 85730; 93970; 96372; 99285; J1650; J7120

== ENCOUNTER 2025-01-14 12:28 | Outpatient (CLI) | payer MEDICARE, MEDICAID, SELFPAY ==
--- OUTSIDE RECORDS SUMMARY | 2024-03-12 08:38 | XMS_ITS | Continuity of Care Document ---
Author Organization [facility] Address [address] [place] [address] Phone Care Team Providers Care [employer] Humanities Teacher Name Role Phone Venhaus WHNP, Jeny Unavailable [...] Encounter [facility], [address], [place], [place], [address] , tel: [phone] [facility] [place] No Information 4 Venhaus Jeny. [address], [place], [place], [address], [place]. tel:[phone] 1ST COMPRE PREV MED E/M NEW PT 65+ [facility], [address], [place], [place], [address] , tel: [phone] [facility] [place] awwe (chief complaint) Body mass index (BMI) 35.0-35.9, adultWell woman check w/ abnormal findingS/P total hysterectomyEnco unter for other screening for cancer of breastAnogenital (venereal) wartsAccessory skin tagOther viral wartsChanges in skin textureEncounter for screening for cancer of colonEncounter for screening for other disorder 4 Venhaus Jeny. [address], [place], [place], [address], . tel:[phone] Referring Provider: Jeny Lopez, [address], [place], [address] . tel:[phone] Marcus orr, [address], [place], [place], [address] , tel: [phone] Care Guidelines 1 No Information Family History [...] Registry Payers Payer name Insurance type Covered alliance party ID Authoriza tipollo(s) United [employer] Medicare Advantage CI [id number] Social History Type Description Quantity Date Captured [...] on due Referral Ordered: Referrals: Dermatology. Location: [place]. Evaluate and treat ordered Referral Referred To: Breast Center Ordered: Referrals: Mammography Screening and Diagnostic. Breast Center. Location: [facility]. Diagnostic testing ordered Nutrition Recommendation Nutrition therap y completed History Of Present Illness Encounter Date Complaint History Of Prese nt Illness awwe 73 y/o here for awwe/establish careHysterectomy 40- 50yrs agonot SALast MMG 10 yrs ago, denies h/o prior abnormal - referral sent to [facility]- managed by PCP - [facility] in [place] c/o a bump that she felt on [...] never goes away.2 sons, 1 lives in [facility]. Functional Status Date Functional Assessmen t [...]
--- NOTE | ~2025-01-14 | US_ITS ---
EXAMINATION: US FNA w image guidance, US FNA additional DATE: 01/14/2025 14:42 INDICATION: Multinodular goiter TECHNIQUE: A time-out was performed to verify the patient's name, date of , and procedure to be performed. The procedure and its benefits and risks were discussed with the patient. Risks specifically discussed included bleeding and infection. The patient understood the risks and agreed to proceed. The neck was prepped and draped in the usual sterile manner. Attention was first turned to the left thyroid nodule. 2 mL 1% lidocaine was used for local anesthesia. 4 passes were made with a 25G needle into the lesion. Appropriate needle location was documented with continuous sonographic guidance. Attention was then turned to the right thyroid nodule. 4 mL 1% lidocaine was used for local anesthesia. 4 passes were made with a 25G needle into the lesion. Appropriate needle location was documented with continuous sonographic guidance. Sterile bandages were applied. There were no immediate complications. FINDINGS: Grayscale ultrasound images demonstrate biopsy needles advanced into a 3.4 cm solid TI RADS 4 nodule with central coarse calcifications in the inferior left thyroid lobe. Subsequent images demonstrate biopsy needles advanced into the 2.6 cm TI RADS 3 nodule at the right side of the inferior isthmus possibly within a pyramidal lobe. IMPRESSION: 1. Successful ultrasound-guided fine needle aspiration of a 3.4 cm TI RADS 4 nodule at the inferior left thyroid. 2. Successful ultrasound-guided fine-needle aspiration of a 2.6 cm TI RADS 3 nodule at the right inferior aspect of the thyroid isthmus. Reviewed, dictated and finalized at location A. IMPRESSION: 1. Successful ultrasound-guided fine needle aspiration of a 3.4 cm TI RADS 4 n odule at the inferior left thyroid. 2. Successful ultrasound-guided fine-needle aspiration of a 2.6 cm TI RADS 3 no dule at the right inferior aspect of the thyroid isthmus.
--- NOTE | 2025-01-14 13:10 | CY_PTH ---
PATIENT: Porsha Laurent LOC: [facility] #:[id number] AGE/SX: 74/F ROOM: RE01/14/[address]: Elena Ervin, [place] : 1950 BED: DIS: 01/14/2025 SPEC #: [id number] RECD: 01/14/25 14:08 STATUS: BOLA REHomer #: [id number] MAGNUS: 01/14/25 13:[address]: Arcadio,Elena Hunter DEPT: [facility] RECD BY: Jessenia Serrato MLT, ([facility]) Tissues: A - FNA Thyroid B - FNA Thyroid Procedures: Hematoxylin and Eosin Stain Cell Block Fine Needle Aspiration Evaluation Fine Needle Aspiration Pathologist
--- OUTSIDE RECORDS SUMMARY | 2025-01-14 13:21 | XMS_ITS | Clinical Summary ---
Author Organization [facility] Address [address] [facility] [place] [address] Care Team Providers Care Commercial Green Building Architect Name Role Phone Elena Ervin [place] HEALTH DENTIST Primary Care Provider [phone]- [phone] Source Comments [facility],non-owned Affiliates and Associated Physician Practices is amultiple site organization consisting of ambulatory clinics and hospital sitesin [place], [place], [place] and [place]. This disclosure is being madepursuant to the Care Everywhere program and may not contain all information available regarding this patient. Last updated 17.[facility] Allergies Active Allergy Reactions Criticality Noted Date [...] Encounters Date Type Department Care Team Description 01/03/2025 Telephone [facility] - Endocrinology [address] [place] [phone] Pinky Myers RN Appointment 01/02/2025 Telephone [facility] [address] [place] [phone] Pinky Myers RN Swelling Leg 01/02/2025 Telephone [facility] [address] [place] [phone] Adama Herrera MD 12/06/2024 2:00 PM CDT Office Visit [facility] [address] [place] [phone] Adama Herrera MD Thyroid nodule (Primary Dx); Multinodular thyroid 12/06/2024 Travel from Last 3 Months Family History Medical [...] on file Legal Sex Female 6:26 PM BUSINESS ANALYST Gender Identity Not on file Sexual Orientation Not on file Last Filed Vital Signs Vital Sign Reading Time Taken Comments Blood Pressure 118/76 12/06/2024 1:58 PM CDT Pulse 73 12/06/2024 1:58 PM CDT Temperature 37.2 C (99 F) 05/21/2019 2:52 PM BUSINESS ANALYST Respiratory Rate 17 05/21/2019 2:52 PM BUSINESS ANALYST Oxygen Saturation 96% 12/06/2024 1:58 PM CDT Inhaled Oxygen Concentration - - Weight 98 kg (216 lb) 12/06/2024 1:58 PM CDT Height 170.2 cm (5' 7) 12/06/2024 1:58 PM CDT Body Mass Index 33.83 12/06/2024 1:58 PM CDT Plan of Treatment Health Maintenance Due Date [...] PANEL (CALCIUM TOTAL) STAT 05/21/2019 3:39 AM BUSINESS ANALYST HEMOGLOBIN A1C Add on 05/19/2019 7:03 PM BUSINESS ANALYST from Last 3 Months or Most Recently Relevant to Health Maintenance Results * (ABNORMAL) BASIC METABOLIC PANEL (CALCIUM TOTAL) (05/21/2019 3:39 AM BUSINESS ANALYST) BUN 10 7 - 26 mg/dL 05/21/2019 4:02 AM [facility] Creatinine 0.6 0.6 - 1.2 mg/dL 05/21/2019 4:02 AM [facility] Sodium 141 136 - 145 mmol/L 05/21/2019 4:02 AM [facility] Potassium 3.3(L) 3.5 - 4.5 mmol/L 05/21/2019 4:02 AM [facility] Chloride 109(H) 98 - 107 mmol/L 05/21/2019 4:02 AM [facility] CO2 24 22 - 29 mmol/L 05/21/2019 4:02 AM [facility] Glucose 145(H) 70 - 115 mg/dL 05/21/2019 4:02 AM [facility] Calcium 7.7(L) 8.4 - 10.2 mg/dL 05/21/2019 4:02 AM [facility] Anion Gap 11 8 - 18 05/21/2019 4:02 AM [facility] BUN/Creatinine Ratio 17 7 - 23 05/21/2019 4:02 AM [facility] Osmolality Calculated 294 270 - 300 mOsm/kg 05/21/2019 4:02 AM [facility] eGFR >60 >60 mL/min/1.7 3 m2 05/21/2019 4:02 AM [facility] Blood BLOOD SPECIMEN / Unknown Venipuncture / Unknown 05/21/2019 3:39 AM BUSINESS ANALYST 05/21/2019 3:45 AM BUSINESS ANALYST Kemi Almaraz MD LAB - CHEMISTRY ORDERABLES Fin al Result Performing Organization Address City/State/[facility] Co de Phone Number [address] [phone] * (ABNORMAL) HEMOGLOBIN A1C (05/19/2019 7:03 PM BUSINESS ANALYST) Hemoglobin A1c 8.4(H) 4.4 - 6.3 % 05/20/2019 10:03 AM [facility] Estimated Average Glucose 194 mg/dL 05/20/2019 10:03 AM [facility] Comment: HbA1c Interpretation: Treatment target values recommended by ADA and other clinical organizations should be used to evaluate metabolic control in patients. Treatment Target Values: Normal : < 5.7% Pre-diabetes: 5.7-6.4% Diabetes: Equal to or greater than 6.5% Reference: [place] Diabetes Association Standards of Care in Diabetes -2014 In patients 70 years and older consider HbA1c target range of 7.0-7.5% Reference: Diabetes Mellitus in Older People: Position Statement on behalf of the International Association of Gerontology and Geriatrics (IAGG), the Diabetes Working Constitution Party for Older People (EDWPOP), and the International Task Force of Experts in Diabetes. Shaq Woods et al. J [place] Medical Directors Association. 2012 Test results diagnostic of diabetes should be repeated for confirmation. The Sebia Capillary 2 assay for the measurement of HbA1c is a National Glycohemoglobin Standardization Program (NGSP)certified method. Blood BLOOD SPECIMEN / Unknown Venipuncture / Unknown 05/19/2019 7:03 PM BUSINESS ANALYST 05/19/2019 7:06 PM BUSINESS ANALYST Kemi Almaraz MD LAB - CHEMISTRY ORDERABLES Fin al Result [facility] [address] [place] [address], [facility] [phone] from Last 3 Months or Most Recently Relevant to Health Maintenance Insurance [facility] MANAGED MEDICARE ADV [facility] Advance Directives * Full Code (Latest Code Status on File) Date Activated Date Inactivated Comments 05/19/2019 10:24 PM 05/21/2019 3:59 PM Care Teams Commercial Green Building Architect Relationship Specialty Start Date End Date Elena Ervin APRN-CNP [address] [place] [address] PCP - General Nurse Practitioner 01/02/25
--- OUTSIDE RECORDS SUMMARY | 2025-01-14 13:21 | XMS_ITS | Data Portability ---
Author Organization [facility], Main Office Address [address] [place] [address] Assessment Encounter Date Assessment Date Assessment LastModified [...] older - Please call patient to schedule. [facility] ([facility] [address] [place], [address], 04:03:25 Medication Orders None recorded. Patient TargetsNo targets recorded. Patient InstructionsNo instructions recorded. Reason for Referral None Reported. Problems Name Problem SNOMED Code Status Onset Date Resolution Date Notes Provider Name and Address Organization Details Recorded Time Sleep apnea 08192036 Active 025 Stephanie Wilson NP [address] [facility], [facility] [address], [place], [address] , [facility] 12/11/2024 14:21:36 Problem Notes None recorded. Medical [...] completed Not Available Not Available Not Available Derivix Ultra2 Meter USE DIRECTED 12/11 completed Not Available Not Available Not Available Vitals Date Recorded Body weight Body mass index (BMI) Body height Heart rate Oxygen saturation Oxygen saturation in Arterial blood by Pulse oximetry Body temperature Systolic And Diastolic Provider Name and Address Organization Details Last Updated DateTime 5 85128.7 7 g 33.5 kg/m2 170.18 cm 73 /min 98 % 98 % 97.8 [degF] 110/80 mm[Hg] Jessenia Sherman MA [facility] 14:14:26 Social History Question Answer Notes LastModified by Organizat ion Details LastModified Time Tobacco Smoking Status Never Smoker Jessenia Sherman MA null, [facility] 12/11/2024 14:11:15 What Is Your Level Of [...] Functional Status Question Answer Note LastModified by [employer] ion Details LastModified Time Do you use [...] anxious, or unable to sleep at night)? [id number] Information not available 12/11/2024 Family History Nothing Reported. Medical History No medical history recorded. Gynecological HistoryNo gynecological history recorded. Obstetrics History GPAL:G 0 P 0 0 0 0 Past Encounters Encounter ID Performer Location Encounter Start Date Encounter Closed Date Diagnosis/Indication Diagnosis SNOMED-CT Code Diagnosis ICD10 Code Diagnosis IMO Codes Diagnosis Note [id number] Milad Miller MD [facility] [address] [address] 12/11/2024 13:57:29 12/12/2024 15:42:26 Sleep apnea 69865365 G47.30 G47.33 G47.10 [id number] Sleep study order todayESS-1 0Discussed sleep hygeineAdv [...] study Body mass index 30+ - obesity 277799193 Z68.33 443213 Encourage healthy diet and exercise to improve weightdisc ussed weight effect on sleep and sleep apnea History of cerebrovascular accident 344327617 Z86.73 264744 left facial droop Health Concerns Section Related Observation LastModified by Organization Detai ls LastModified Time None Recorded Concern Status LastModified by Organization Details LastModified Time None Recorded Advance Directives Directive None Recorded Payers Insurance Date Sequence Insurance Name Policy Number Policy Harrison Covered Member ID Harrison Member ID Guarantor Name 12/11/2024 1 [facility] (MEDICARE REPLACEMENT/A DVANTAGE - PPO) [id number] Porsha Laurent [id number] Porsha Laurent Notes Date Note Type Note [...] latePatient scattered thoughts but easily redirected Stephanie Wilson, SIMIN [address] [facility], [facility] [address], [place], [address], [facility] [place] 12/12/2024 10:38:36 OBGyn Episode No OBEpisode recorded.
--- OUTSIDE RECORDS SUMMARY | 2025-01-14 13:21 | XMS_ITS | Data Portability ---
Author Organization [facility] IP Address [address] [place] [phone] Assessment No assessment recorded. Plan of Treatment Reminders Order Date Submit Date Provider Last Modified By Organization Details Last Modified Time Details Appointments None record ed. Lab None record ed. Referral None record ed. Procedures None record ed. Surgeries None record ed. Imaging None record ed. Medication Orders None record ed. Patient TargetsNo targets recorded. Patient Instructions Encounter Date Encounter Id Patient Instructions Last Modified By Organization Details Last Modified Time 11/15/2024 [id number] medical record request* ATHENAFAX Not available 11/20/2024 16:25:23 Reason for Referral None Reported. Medical Equipment None Reported. Medications Name Sig Start Date Stop Date Status Note LastModified by Organization Details LastModified Time atorvastatin 20 mg tablet TAKE ONE TABLET BY MOUTH IN THE MORNING active Not Available Not Available No t Available levetiracetam 500 mg tablet TAKE ONE TABLET BY MOUTH TWICE DAILY active Not Available Not Available No t Available Alcohol Pads TEST 4 TIMES A DAY active Not Available Not Available No t Available glimepiride 2 mg tablet TAKE ONE TABLET BY MOUTH TWICE DAILY active Not Available Not Available No t Available losartan 100 mg-hydrochloro thiazide 25 mg tablet TAKE ONE TABLET BY MOUTH ONCE DAILY FOR 90 DAYS active Not Available Not Available No t Available OneTouch Ultra Test strips TEST 4 TIMES A DAY active Not Available Not Available No t Available hydroxyzine HCl 25 mg tablet TAKE [...] 28 gauge TEST 4 TIMES A DAY active Not Available Not Available No t Available OneTouch Ultra2 Meter USE DIRECTED active Not Available Not Available No t Available Vitals Date Recorded Body height Body mass index (BMI) Body weight Heart rate Respiratory rate Body temperature Pain severity - 0-10 verbal numeric rating [Score] - Reported Oxygen saturation Oxygen saturation in Arterial blood by Pulse oximetry Systolic And Diastolic Provider Name and Address Organization Details Last Updated DateTime 165.1 cm 34.6 kg/m2 60257.2 1 g 86 /min 20 /min 97.6 [degF] 0 96 % 96 % 100/61 mm[Hg] Guadalupe ponce MA [facility] 14:08:30 Social History Question Answer Notes LastModified by [employer] ion Details LastModified Time Tobacco Smoking Status Never Smoker Guadalupe Deutsch MA null, [facility] 11/15/2024 14:07:24 What Is Your Level Of Caffeine Consumption? None Information not available 11/15/2024 What Was The Date Of Your Most Recent Tobacco Screening? 11/15/2024 Information not available 11/15/2024 Has Tobacco Cessation Counseling Been Provided? No Information not available 11/15/2024 Sex: Unknown Functional Status Question Answer Note LastModified by [employer] ion Details LastModified Time Do you use any illicit or recreational drugs? No Information not available 11/15/2024 Do you or have you ever used any other forms of tobacco or nicotine? No Information not available 11/15/2024 What is your level of alcohol consumption? None Information not available 11/15/2024 Mental Status None recorded. Family History Nothing Reported. Medical History No medical history recorded. Gynecological HistoryNo gynecological history recorded. Obstetrics History GPAL:G 0 P 0 0 0 0 Past Encounters Encounter ID Performer Location Encounter Start Date Encounter Closed Date Diagnosis/Indication Diagnosis SNOMED-CT Code Diagnosis ICD10 Code Diagnosis IMO Codes Diagnosis Note [id number] [facility] [address] [place] [address] 11/15/2024 13:51:02 11/15/2024 14:33:19 Chronic constipation 442517705 K59.09 922472 so I have asked the patient to decrease her Linzess to 145 mcg she states she already has that at home I have asked her to take it 1st thing in the morning at least a 1/2 hour to an hour before she eats if she has episodes with constipati on she will take MiraLax and we will adjust her medication s as needed Health Concerns Section Related Observation LastModified by Organization Detai ls LastModified Time None Recorded Concern Status LastModified by Organization Details LastModified Time None Recorded Advance Directives Directive None Recorded Payers Insurance Date Sequence Insurance Name Policy Number Policy Harrison Covered Member ID Harrison Member ID Guarantor Name 11/14/2024 1 [facility] (MEDICARE REPLACEMENT/A DVANTAGE - PPO) [id number] Porsha Laurent [id number] Porsha Laurent Notes Date Note Type Note Provider Name and Address Organization Details Recorded Time 11/15/2024 text/html ROS as noted in the HPI the patient has been having longstanding problem with the constipation she states she was placed on Linzess 2 months ago it sounds like she was placed on 145 she was then increased to 90s she states she takes it to 90s at night because when she takes it she has diarrhea she has had episodes where she feels impacted would have to go take the stools out with the fingers she states she had a colonoscopy done approximately 2 years ago [facility] that was negative Lissa Antonio DO [address], [place], [address], [place] - [facility] 11/15/2024 14:21:52 OBGyn Episode No OBEpisode recorded.
--- OUTSIDE RECORDS SUMMARY | 2025-01-14 13:21 | XMS_ITS | Encounter Summary ---
Author Organization [facility] Address [address] [facility] [place] [address] Care Team Providers Care Laundry Presser Name Role Phone Elena Ervin [place]-[employer] NET MAKER Primary Care Provider [phone]- [phone] Encounter Details Date Type Department Care Team (Late st Contact Info) Description 01/02/2025 Telephone [facility] Endocrinology [address] [place] [address], [facility] [place] [phone] Adama Herrera MD [address] [place] [address] [place] [address] Social History Tobacco Use Types Packs/Day Years Used Date Smoking Tobacco: Never Smokeless Tobacco: Never Alcohol Use Standard Drinks/Week Comments Never 0 (1 standard drink = 0.6 oz pur e alcohol) PHQ-2 Answer Date Recorded Patient Health Questionnaire-2 Score 0 12/06/2024 Comments Unknown Sex and Gender Information Value Date Recorded Sex Assigned at Not on file Legal Sex Female 6:26 PM RADIATION / CHEMISTRY TECHNICIAN Gender Identity Not on file Sexual Orientation [...] call. She is Patient Call Back Number: [phone] documented in this encounter Plan of Treatment Not on file documented as of this encounter Visit Diagnoses Not on filedocumented in this encounter Care Teams Laundry Presser Relationship Specialty Start Date End Date Elena Ervin APRN-JENY [facility] [place] [address] PCP - General Nurse Practitioner 01/02/25 documented as of this encounter
== END 2025-01-14 12:29 | disposition home or self-care (01) ==
PROVIDERS: PCP Registered Nurse; Visit Provider Registered Nurse
DX: E04.2 Nontoxic multinodular goiter (principal)
CPT/HCPCS: 10005; 10006; 88172; 88173; 88305

== ENCOUNTER 2025-04-08 13:29 | Outpatient (CLI) | payer MEDICARE, MEDICAID, SELFPAY ==
--- NOTE | ~2025-04-08 | DEXA_ITS ---
Bone Density Report Name: CHARISSE MORSE Age: 74 Sex: Female Ethnicity: White Date of : 1950 Indication: postmenopausal; screening for osteoporosis; height loss; asthma or emphysema; hysterectomy; Referring Provider: LAKE, SG Hunter Study: Bone densitometry was performed. Exam Date: April 08, 2025 Accession number: [id number] Bone Density: Region BMD T-score Z-score Classification AP Spine(L1-L4) 1.159 1.0 3.4 Normal Femoral Neck (Left) 0.656 -1.7 0.3 Osteopenia Total Hip (Left) 0.809 -1.1 0.7 Osteopenia Femoral Neck (Right) 0.531 -2.9 -0.8 Osteoporosis Total Hip (Right) 0.940 0.0 1.7 Normal Total Hip Mean 0.875 -0.6 1.2 Normal World Health Organization criteria for BMD impression classify patients as: Normal (T-score at or above -1.0), Osteopenia (T-score between -1.0 and -2.5), or Osteoporosis (T-score at or below -2.5). 10-year Fracture Risk: FRAX not reported because: Some T-score for Spine Total or Hip Total or Femoral Neck at or below -2.5 Clinical Information Provided by Patient: Has used the following medications: Vitamin D, Calcium Has the following medical conditions: Asthma or Emphysema, Hysterectomy Patient maximum height was 67.5 Menopause Age: 31 No regular weight bearing exercise Does not regularly consume dairy products Onset of menses at age 12 Number of children 2 Impression: The patient has osteoporosis, based on the Right Femoral Neck T-score. Discussion: INCREASED RISK OF FRACTURE. BONE DENSITY IS UNDESIRABLY LOW AT ONE OR MORE SKELETAL SITES, CONSISTENT WITH POSTMENOPAUSAL OSTEOPOROSIS. This patient's lowest T-score meets the World Health Organization's (WHO) criteria for osteoporosis at one or more sites (T-score -2.5 or below). In untreated patients, the risk of osteoporotic fracture increases approximately two-fold for each 1.0 SD decrease in T-score. Low bone density is not the only risk factor for fracture; also consider factors such as patient's age, frailty or poor health, risk of falling, risk of injury, previous osteoporotic fracture, family history of osteoporosis, cigarette smoking, low body weight, etc. Not everyone with low bone mineral density has osteoporosis; osteomalacia and other metabolic bone disorders should also be considered. Patients who have osteoporosis should be evaluated for specific diseases and conditions (secondary causes) that may cause or contribute to bone loss. The [place] Association of Clinical Endocrinologists (AACE) and National Osteoporosis Foundation (NOF) recommend pharmacologic intervention for all postmenopausal women whose T-score is in this range. The patient should follow a healthful lifestyle (good nutrition with adequate calcium and vitamin D, and appropriate weight-bearing exercise). Follow-Up: Consider a repeat BMD and Vertebral Fracture Assessment (VFA) exam in 2 years or sooner if medically necessary, to reassess this patient's status. Reported by: ANUJA on 04/08/2025 2:39:00 PM. Reviewed, dictated and finalized at location A.
--- NOTE | ~2025-04-08 | MM_ITS ---
EXAMINATION: MM screening christopher BI w christina HISTORY: SCREENING MAMM TECHNIQUE: Craniocaudal and mediolateral oblique 3-D tomosynthesis images were obtained and synthetic 2-D images were generated. CAD analysis was submitted and interpreted. COMPARISON: 2023 BREAST PARENCHYMAL COMPOSITION: There are scattered areas of fibroglandular tissue. FINDINGS: No suspicious masses are seen. There are no suspicious calcifications. There are stable coarse calcifications on both sides, left greater than right. No unexplained architectural distortion is seen. There are no skin or nipple abnormalities identified. There is no adenopathy seen on the images submitted. IMPRESSION: No mammographic evidence to suggest malignancy is seen. The patient may return to screening mammography as per ACR guidelines. BI-RADS 2 - Benign. Reviewed, dictated and finalized at location C. [employer] SECURITY CLERK
--- OUTSIDE RECORDS SUMMARY | 2025-04-08 13:52 | XMS_ITS | Data Portability ---
Author Organization [facility] IP Address [address] [place] [address] Assessment No assessment recorded. Plan of Treatment [...] By Organization Details Last Modified Time 11/15/2024 [id number] medical record request* ATHENAFAX Not available 11/20/2024 16:25:23 Reason for Referral None Reported. Medical Equipment None Reported. Allergies Allergen ID Allergen Name Allergen Category Reaction Reaction Severity Criticality Documentation Date Start Date Code Code System Note Provider Name and Address Organization Details Recorded Time 21360908 mold extract environme nt Not available Not available low 02/11/20252021 80952 8 RxNorm unrec ogniz ed react ion (text : Unkno wn, code: 39802 5006) (from [facility]) Not Available genny - External Data Service - prod 14:08:59 Medications Name Sig Start Date Stop Date [...] numeric rating [Score] - Reported Oxygen saturation Systolic And Diastolic Provider Name and Address Organization Details Last Updated DateTime 165.1 cm 34.6 kg/m2 20558.2 1 g 86 /min 20 /min 97.6 [degF] 0 96 % 100/61 mm[Hg] Guadalupe ponce MA [facility] 14:08:30 Social History Question Answer Notes LastModified by Card[employer] ion Details LastModified Time Tobacco Smoking Status Never Smoker Guadalupe Deutsch MA null, [place] - [facility] 11/15/2024 14:07:24 What Is Your Level Of Caffeine Consumption? None Information not available 11/15/2024 What Was The Date Of Your Most Recent Tobacco Screening? 11/15/2024 Information not available 11/15/2024 Has Tobacco Cessation Counseling Been Provided? No Information not available 11/15/2024 Sex: Unknown Functional Status Question Answer Note LastModified by Organizat ion Details LastModified Time Do you use [...] ICD10 Code Diagnosis IMO Codes Diagnosis Note [id number] Lissa Antonio DO [facility] [address] [place] [address] 11/15/2024 13:51:02 11/15/2024 14:33:19 Chronic constipation 506515531 K59.09 [id number] so I have asked the patient to [...] Harrison Member ID Guarantor Name 11/14/2024 1 [facility] (MEDICARE REPLACEMENT/A DVANTAGE - PPO) [id number] Porsha Laurent [id number] Porsha Laurent Notes Date Note Type Note [...] a colonoscopy done approximately [address] [facility] that was negative Lissa Antonio DO [address] [place], [address], [facility] 11/15/2024 14:21:52 OBGyn Episode No OBEpisode recorded.
== END 2025-04-08 13:30 | disposition home or self-care (01) ==
LOC: ANHFOHIMG 13:40
PROVIDERS: Visit Provider Registered Nurse
DX: Z12.31 Encounter for screening mammogram for malignant neoplasm of breast (principal); R92.8 Other abnormal and inconclusive findings on diagnostic imaging of breast; M85.89 Other specified disorders of bone density and structure, multiple sites; Z78.0 Asymptomatic menopausal state
CPT/HCPCS: 77063; 77067; 77080